=== PATIENT | female | born 1980 | race Caucasian/White ===

== ENCOUNTER 2021-09-19 09:22 | Outpatient (CLI) | payer OTHER | END 2021-09-19 15:27 | disposition home or self-care (01) | LOC: MAMO-SONO 09:22 | PROVIDERS: ATTEND Obstetrics & Gynecology | DX: N64.4 Mastodynia (principal) ==

== ENCOUNTER 2022-11-26 11:27 | Outpatient (CLI) | payer OTHER | END 2022-11-26 11:33 | disposition home or self-care (01) | LOC: MAMO-SONO 11:27 | PROVIDERS: ATTEND Obstetrics & Gynecology | DX: N64.4 Mastodynia (principal) ==

== ENCOUNTER 2022-12-18 12:20 | Outpatient (CLI) | payer OTHER | END 2022-12-18 12:32 | disposition home or self-care (01) | LOC: SONOGRAMA 12:20 | PROVIDERS: ATTEND Surgery | DX: N60.32 Fibrosclerosis of left breast (principal); N60.02 Solitary cyst of left breast ==

== ENCOUNTER 2025-05-24 12:13 | Outpatient (CLI) | payer OTHER | END 2025-05-24 12:18 | disposition home or self-care (01) | LOC: MAMO-SONO 12:13 | PROVIDERS: ATTEND Obstetrics & Gynecology | DX: N64.4 Mastodynia (principal) ==